=== PATIENT | male | born 1955 | race Caucasian/White ===

== ENCOUNTER → 2017-06-14 10:06 | Outpatient (CLI) | payer OTHER ==
[2017-06-14 10:49] LABS: BASOPHILS 0.5 % (0-2); EOSINOPHILS 0.6 % (0-7); HEMOGLOBIN 14.5 g/dL (13.5-17.5); IMMATURE GRANULOCYTES 0.2 % (0-5); LYMPHOCYTES 33.4 % (15-50); MCH 29.7 pg (26.0-34.0); MCHC 35.4 g/dL (31.0-37.0); MEAN PLATELET VOLUME 10.3 fL (7.4-10.4); MONOCYTES 8.9 % (2-11); NEUTROPHILS 56.4 % (40-80); PLATELET COUNT 181 10x3/uL (130-400); RBC 4.88 10x6/uL (4.20-6.10); RDW 14.8 % (11.5-14.5); WBC 6.5 10x3/uL (4.8-10.8)
== END | disposition home or self-care (01) ==
LOC: D.LAB 08:00
PROVIDERS: Orthopaedic Surgery
DX: C85.90 Non-Hodgkin lymphoma, unspecified, unspecified site (principal)

== ENCOUNTER 2018-01-11 11:20 | Emergency (ER) | payer OTHER ==
[2018-01-11 11:26] VITALS: Ht 172.7 cm
[2018-01-11 12:16] LABS: BASOPHILS 0.5 % (0-2); EOSINOPHILS 0.7 % (0-7); HEMATOCRIT 41.9 % (42.0-54.0); HEMOGLOBIN 14.7 g/dL (13.5-17.5); LYMPHOCYTES 30.4 % (15-50); MCH 29.2 pg (26.0-34.0); MCHC 35.1 g/dL (31.0-37.0); MCV 83.3 fL (80.0-100.0); MEAN PLATELET VOLUME 10.9 fL (7.4-10.4); MONOCYTES 9.1 % (2-11); NEUTROPHILS 59.3 % (40-80); RBC 5.03 10x6/uL (4.20-6.10); RDW 14.9 % (11.5-14.5); WBC 5.9 10x3/uL (4.8-10.8)
[2018-01-11 12:18] LABS: PLATELET COUNT 136 10x3/uL (130-400)
[2018-01-11 12:33] LABS: ALKALINE PHOSPHATASE 87 U/L (46-116); ALT (SGPT) 29 U/L (10-68); BILIRUBIN - TOTAL 0.68 mg/dL (0.2-1.3); CALC OSMOLALITY 276 mosm/kg (275-300); CALCIUM 8.4 mg/dL (8.5-10.1); CARBON DIOXIDE 23.7 mmol/L (21.0-32.0); CHLORIDE - SERUM 102 mmol/L (98-107); CREATININE - SERUM 0.9 mg/dL (0.6-1.3); GLUCOSE 114 mg/dL (74-106); POTASSIUM - SERUM 3.9 mmol/L (3.5-5.1); PROTEIN - SERUM 7.7 g/dL (6.4-8.2); SODIUM 138 mmol/L (136-145); UREA NITROGEN 12 mg/dL (7-18); eGFR NON AFRICAN AMERICAN > 90 mL/min (90-120)
[2018-01-11 12:44] LABS: CKMB 1.9 U/L (0.0-3.6); CREATINE KINASE 95 UL (21-232); PRO BNP 2253 pg/mL (0-125)
[2018-01-11 12:45] LABS: TROPONIN-I < 0.017 ng/mL (0.000-0.060)
[2018-01-11 14:15] VITALS: BP 151/95
== END 2018-01-11 18:58 | disposition other institution (70) ==
LOC: D.ER 11:20
PROVIDERS: Family Medicine
DX: I48.91 Unspecified atrial fibrillation (principal); E11.9 Type 2 diabetes mellitus without complications

== ENCOUNTER → 2019-02-26 09:43 | Outpatient (CLI) | payer OTHER ==
[2019-02-26 10:06] LABS: BASOPHILS 0.7 % (0-2); EOSINOPHILS 0.7 % (0-7); HEMATOCRIT 38.3 % (42.0-54.0); HEMOGLOBIN 13.2 g/dL (13.5-17.5); IMMATURE GRANULOCYTES 0.2 % (0-5); LYMPHOCYTES 26.2 % (15-50); MCH 30.7 pg (26.0-34.0); MCHC 34.5 g/dL (31.0-37.0); MCV 89.1 fL (80.0-100.0); MEAN PLATELET VOLUME 10.7 fL (7.4-10.4); MONOCYTES 7.6 % (2-11); NEUTROPHILS 64.6 % (40-80); PLATELET COUNT 146 10x3/uL (130-400); RDW 14.2 % (11.5-14.5); WBC 5.8 10x3/uL (4.8-10.8)
== END | disposition home or self-care (01) ==
LOC: D.LAB 09:43
PROVIDERS: ATTEND Internal Medicine Gastroenterology
DX: R12 Heartburn (principal); R19.5 Other fecal abnormalities